=== PATIENT | male | born 1930 | race Caucasian/White ===

== ENCOUNTER → 2016-07-16 | Outpatient (CLI) | payer MEDICARE, OTHER ==
[2016-07-16 09:15] LABS: ALBUMIN 3.6 GM/DL (3.2-5.2); ALBUMIN/GLOBULIN RATIO 1.24 (1.00-1.93); ALKALINE PHOSPHATASE 71 U/L (45-117); ALT/SGPT 24 U/L (12-78); ANION GAP 6 MEQ/L (8-16); AST/SGOT 22 U/L (15-37); BILIRUBIN,TOTAL 1.8 MG/DL (0.2-1.0); BLOOD UREA NITROGEN 12 MG/DL (7-18); CALCIUM LEVEL 8.7 MG/DL (8.8-10.2); CARBON DIOXIDE LEVEL 31 MEQ/L (21-32); CHLORIDE LEVEL 107 MEQ/L (98-107); CHOLESTEROL LEVEL 154 MG/DL (<200); CREATININE FOR GFR 1.06 MG/DL (0.70-1.30); GLOMERULAR FILTRATION RATE > 60.0 (>35); GLUCOSE, FASTING 122 MG/DL (83-110); POTASSIUM SERUM 4.5 MEQ/L (3.5-5.1); SODIUM LEVEL 144 MEQ/L (136-145); TOTAL PROTEIN 6.5 GM/DL (6.4-8.2); TRIGLYCERIDES LEVEL 79 MG/DL (<150)
== END ==
LOC: M LAB 08:11
PROVIDERS: ATTEND Physician Assistant
DX: I25.10 Atherosclerotic heart disease of native coronary artery without angina pectoris (principal); I10 Essential (primary) hypertension; E78.00 Pure hypercholesterolemia, unspecified

== ENCOUNTER 2017-02-13 22:16 | Emergency (ER) | payer MEDICARE, OTHER ==
[~2017-02-13] VITALS: Ht 182.9 cm; Wt 94.5 kg
[2017-02-13] MEDS ORDERED: fentaNYL 100 MCG/2 ML INJECTION (J3010) IV ONE (23:00)
--- NOTE | 2017-02-13 23:05 | REP ---
Clinical: Altered mental status. Comparison: 08/10/2015. Findings: Mild cardiomegaly cannot be excluded along with diffuse chronic interstitial changes. No obvious consolidation, effusion, or pneumothorax. Atherosclerotic changes to the thoracic aorta noted. Skeletal structures demonstrate age-related osteopenia and degenerative changes. Impression: Chronic-appearing interstitial changes. Signed by Eloy Patel MD 02/13/2017 10:57 P
[2017-02-13 23:15] LABS: BASO % 0.2 % (0.0-1.0); EOS % 0.1 % (0.0-3.0); LARGE UNSTAINED CELL # 0.1 K/mm3 (0.0-0.4); LARGE UNSTAINED CELL % 0.5 % (0.0-4.0); LYMPH # 0.6 K/mm3 (1.5-4.5); LYMPH % 4.3 % (24.0-44.0); MEAN CORPUSCULAR HEMOGLOBIN 30.8 pg (27.0-33.0); MEAN CORPUSCULAR HGB CONC 33.9 g/dl (32.0-36.5); MEAN CORPUSCULAR VOLUME 90.8 fl (80.0-96.0); MONO # 0.7 K/mm3 (0.0-0.8); MONO % 5.3 % (0.0-5.0); NEUTROPHILS % 89.6 % (36.0-66.0); PLATELET COUNT, AUTOMATED 157 k/mm3 (150-450); RED CELL DISTRIBUTION WIDTH 12.7 % (11.5-14.5); WHITE BLOOD COUNT 13.4 K/mm3 (4.0-10.0)
[2017-02-13 23:28] LABS: OSMOLALITY SERUM 299 MOSM/KG (280-301)
[2017-02-13 23:47] LABS: ALBUMIN 3.9 GM/DL (3.2-5.2); ALBUMIN/GLOBULIN RATIO 1.22 (1.00-1.93); ALKALINE PHOSPHATASE 75 U/L (45-117); ALT/SGPT 29 U/L (12-78); ANION GAP 10 MEQ/L (8-16); AST/SGOT 28 U/L (15-37); BILIRUBIN,DIRECT 0.4 MG/DL (0.0-0.2); BILIRUBIN,TOTAL 1.8 MG/DL (0.2-1.0); BLOOD UREA NITROGEN 16 MG/DL (7-18); CARBON DIOXIDE LEVEL 26 MEQ/L (21-32); CHLORIDE LEVEL 109 MEQ/L (98-107); CREATININE FOR GFR 1.11 MG/DL (0.70-1.30); GLOMERULAR FILTRATION RATE > 60.0 (>35); GLUCOSE, FASTING 126 MG/DL (83-110); POTASSIUM SERUM 3.9 MEQ/L (3.5-5.1); SODIUM LEVEL 145 MEQ/L (136-145); TOTAL PROTEIN 7.1 GM/DL (6.4-8.2)
[2017-02-13 23:49] VITALS: BP 150/73
[2017-02-14] MEDS ORDERED: ISOVUE-370 76% 100ML VIAL (Q9967) As Ordered ONE
--- NOTE | 2017-02-14 00:30 | REPUSA ---
CT of the cervical spine Clinical history: trauma. Technique: Multiple axial CT images were obtained through the cervical spine without administration o f contrast. Coronal and sagittal 3-D reconstructed images were also obtained. Comparison: None. Findings: The cervical vertebral bodies are in satisfactory positioning and alignment. No fractures or dislocat ions are demonstrated. The odontoid process is intact. Intervertebral disc spaces are severely narrow ed at multiple levels, most severe at C5/C6 and C6/C7. Disc osteophyte complexes are seen at these le vels. This results in moderate central canal stenosis. There is moderate diffuse facet arthropathy bi laterally with sclerosis and overhanging osteophytes. There is no evidence of facet subluxation. The neural foramen are moderately narrowed bilaterally at C5/C6 and C6/C7. The cervical cranial junction is intact. The cervical spinal canal demonstrates normal caliber and contour without evidence of spin al stenosis. The surrounding soft tissues are within normal limits. Impression: 1. No acute fracture or traumatic injury. 2. 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 Is most severe at C5/C6 and C6/C7, where disc osteophyte complexes and disc bulges caused moderate central canal stenosis and bilateral neural foraminal narrowing.
--- NOTE | 2017-02-14 00:30 | REPUSA ---
CT of the head Clinical history: trauma. Technique: Multiple axial CT images were obtained through the head without administration of contrast . Findings: The ventricles and sulci are symmetric bilaterally. There is no evidence of acute hemorrhag e or infarct. There is no midline shift, mass effect, or extra-axial fluid collection. The osseous st ructures are unremarkable. The visualized paranasal sinuses and mastoid air cells are clear. Impression: Negative study.
--- NOTE | 2017-02-14 00:50 | REPUSA ---
CLINICAL HISTORY: Trauma. TECHNIQUE: Multiple axial CT images were obtained through the thorax with IV contrast material. COMMENTS: There is no evidence of pleural or parenchymal mass. There are no pleural effusions. There is no evid ence of hilar or mediastinal lymphadenopathy. The heart and great vessels are within normal limits. Bilateral basilar atelectatic pulmonary changes. The visualized portions of the liver are of uniform attenuation without mass or defect. There is no i ntra or extrahepatic biliary ductal dilatation. The spleen is unremarkable. The visualized pancreas i s of normal contour and attenuation characteristics. There is no evidence of adrenal mass. The visual ized portions of the kidneys present no abnormalities. The bony structures are free of lytic or blastic lesions. Post contrast images demonstrate no evidence for abnormal enhancement. IMPRESSION: Bilateral basilar atelectatic pulmonary changes. Thank you for your kind referral of this patient.
--- NOTE | 2017-02-14 01:00 | REPUSA ---
CLINICAL HISTORY: Abdominal pain. TECHNIQUE: Multiple axial, sagittal and coronal CT images were obtained through the abdomen and pelvi s after administration of intravenous contrast material. COMMENTS: The liver is of uniform attenuation without mass or defect. There is no intra or extrahepatic biliary ductal dilatation. The spleen is normal. The gallbladder is within normal limits. The pancreas is of normal contour and attenuation characteristics. There is no evidence of adrenal mass. Bilateral simple renal cysts are noted. Both kidneys demonstrate prompt and equal nephrograms. The kidneys are normal in size, shape and conf iguration. There is no evidence of renal or ureteral mass. No renal or ureteral calculi are identifie d. There is no hydroureter or hydronephrosis. No evidence for appendicitis. There is no bowel wall thickening. No evidence for small or large gege l obstruction. There is no evidence of abdominal ascites or lymphadenopathy. Uncomplicated colonic diverticulosis. Mild large bowel fecal stasis. There is no evidence of intrinsic or extrinsic bladder mass. Diffusely thickened bladder. There is no pelvic ascites or lymphadenopathy. Moderate prostatomegaly with scattered prostatic calcifications. Images of the lung bases show no evidence of pleural or parenchymal mass. There are no pleural effusi ons. The bony structures are free of lytic or blastic lesions. Multilevel degenerative changes are seen in volving the thoracolumbar spine. Scattered calcifications are seen involving the aorta and major branches compatible with atherosclero sis. Small sliding hiatal hernia. IMPRESSION: Bilateral simple renal cysts. No acute traumatic pathology is noted. Uncomplicated diverticulosis. Large bowel fecal stasis. Distended, thickened bladder. Prostatomegaly. Thank you for your kind referral of this patient.
[2017-02-14] MEDS ORDERED: traMADol 50 MG TAB (BULK 4 TAB ED) PO ONE (01:30)
[2017-02-14] MEDS ORDERED: TETANUS/DIPHTHERIA TOX ADSORB ADULT 0.5ML SYR/VIAL (90714) IM ONE (01:45)
--- NOTE | 2017-02-15 06:04 | ECGEPIP ---
Stationary ECG Study [facility] - ED Test Date: 2017-02-13 Pat Name: ROLO RAWLS Department: Room: - Gender: M [employer]: [facility] : 1930 Requested By: TORITO Escobar Order Number: [id number] Reading MD: Lenin Fuentes Measurements Intervals [place] Rate: 71 P: 48 HI: 203 QRS: -16 QRSD: 108 T: 21 QT: 420 QTc: 458 Interpretive Statements SINUS RHYTHM WITH FIRST DEGREE AV BLOCK WITH OCCASIONAL VENTRICULAR PREMATURE COMPLEXES POSSIBLE SEPTAL MYOCARDIAL INFARCTION, PROBABLY OLD SIMILAR TO 09/17/12 Electronically Signed On 02-15-2017 6:04:37 EDT by Lenin Fuentes
== END 2017-02-14 02:48 | disposition home or self-care (01) ==
LOC: M ED 22:16 → EDBD 22:16 → M ED 02-14 02:48
DX: S01.91XA Laceration without foreign body of unspecified part of head, initial encounter (principal); X31.XXXA Exposure to excessive natural cold, initial encounter; W19.XXXA Unspecified fall, initial encounter; Y92.828 Other wilderness area as the place of occurrence of the external cause; Y93.9 Activity, unspecified; Y99.9 Unspecified external cause status; I51.7 Cardiomegaly; N28.1 Cyst of kidney, acquired; K57.90 Diverticulosis of intestine, part unspecified, without perforation or abscess without bleeding; N32.9 Bladder disorder, unspecified; N40.0 Benign prostatic hyperplasia without lower urinary tract symptoms; M50.80 Other cervical disc disorders, unspecified cervical region; J98.11 Atelectasis; I21.09 ST elevation (STEMI) myocardial infarction involving other coronary artery of anterior wall; I21.29 ST elevation (STEMI) myocardial infarction involving other sites; I10 Essential (primary) hypertension; F03.90 Unspecified dementia, unspecified severity, without behavioral disturbance, psychotic disturbance, mood disturbance, and anxiety; Z97.4 Presence of external hearing-aid; Z95.5 Presence of coronary angioplasty implant and graft
CPT/HCPCS: 12001; 70450; 71010; 71260; 72125; 74177; 80048; 80076; 82140; 83605; 83930; 84443; 85025; 90471; 90714; 93005; 93041; 94760; 96374; 99285; G0480; J3010; Q9967

== ENCOUNTER → 2019-11-17 | Outpatient (CLI) | payer MEDICARE, OTHER ==
[~2019-11-17] MED LIST: ASPI81TA85 PO; ATOR1TAB19 PO; CARV3.12 PO; CO Q200C10 PO; D3 +TAB PO; DONE10TA90 PO; FOLTTAB9 PO; OCUVCAP2 PO
== END ==
LOC: M LABSMTC 11:16
PROVIDERS: ATTEND Anesthesiology
DX: Z01.818 Encounter for other preprocedural examination (principal); Z11.59 Encounter for screening for other viral diseases
CPT/HCPCS: C9803; U0003

== ENCOUNTER 2019-11-20 09:12 | Day surgery (SDC) | payer MEDICARE, OTHER ==
[~2019-11-20] VITALS: Ht 188 cm; Wt 82.1 kg
[~2019-11-20 09:12] MED LIST changes: +NS 1,000 ML IV ONE
[2019-11-20] MEDS ORDERED: LIDOCAINE 2% 100MG/5ML SDV (FOR ANES.) As Ordered ONE ×2 (11:00→11:05)
[2019-11-20] MEDS ORDERED: propofoL 200 MG/20 ML VIAL As Ordered ONE (11:00)
[2019-11-20 11:40] VITALS: BP 124/59
--- NOTE | 2019-11-20 12:01 | ROOR ---
Patient Name: Heath Bosch Procedure Date: 11/20/2019 10:51 AM Date of : 1930 Age: 88 Room: [facility] Gender: Male Note Status: Finalized Procedure: Upper GI endoscopy Indications: Therapeutic procedure, Dysphagia, Stricture of the esophagus Providers: Ismael ZELAYA MD Referring MD: CHERIE SAUNDERS MD Requesting Provider: Medicines: Monitored Anesthesia Care Complications: No immediate complications. Procedure: Pre-Anesthesia Assessment: - The heart rate, respiratory rate, oxygen saturations, blood pressure, adequacy of pulmonary ventilation, and response to care were monitored throughout the procedure. The Endoscope was introduced through the mouth, and advanced to the second part of duodenum. The upper GI endoscopy was accomplished without difficulty. The patient tolerated the procedure well. Findings: One benign-appearing, intrinsic moderate (circumferential scarring or stenosis; an endoscope may pass) stenosis was found at the gastroesophageal junction. This stenosis measured 1 cm (in length). The stenosis was traversed. A TTS dilator was passed through the scope. Dilation with a 15-16.5-18 mm balloon dilator was performed to 16.5 mm. The dilation site was examined and showed moderate improvement in luminal narrowing. This was biopsied with a cold forceps for histology. The entire examined stomach was normal. The examined duodenum was normal. Impression: - Benign-appearing esophageal stenosis. Dilated. Biopsied. - Normal stomach. - Normal examined duodenum. Recommendation: - Use Prilosec (omeprazole) 40 mg daily indefinitely. - Observe patient's clinical course. - Soft diet. - Return to referring physician as previously scheduled. - Telephone my office for pathology results in 2 weeks. Ismael Zelaya MD Ismael ZELAYA MD 11/20/2019 12:01:13 PM Electronically signed by Ismael ZELAYA MD Number of Addenda: 0 Note Initiated On: 11/20/2019 10:51 AM Estimated Blood Loss: Estimated blood loss: none.
== END 2019-11-20 12:17 | disposition home or self-care (01) ==
LOC: M OPP 09:12
PROVIDERS: ATTEND Internal Medicine Gastroenterology
DX: K22.2 Esophageal obstruction (principal); R13.10 Dysphagia, unspecified; Z79.82 Long term (current) use of aspirin; Z79.899 Other long term (current) drug therapy